=== PATIENT | female | born 1950 | race Two or more races ===

== ENCOUNTER → 2021-11-19 08:00 | Outpatient (CLI) | payer OTHER ==
[~2021-11-19] VITALS: Ht 157.5 cm; Wt 79.4 kg
[~2021-11-19 08:00] MED LIST: ARIMIDES PO; AVAPRO300 MG PO; LIPITOR40 MG PO; NORVASC5 MG PO
== END | disposition home or self-care (01) ==
LOC: LAB 08:00 → SURG 11-23 07:00 → EDSTATUS 11-23 08:45 → SURG 11-23 08:45
PROVIDERS: ATTEND Surgery
DX: R10.32 Left lower quadrant pain (principal); R19.4 Change in bowel habit; K57.20 Diverticulitis of large intestine with perforation and abscess without bleeding; Z20.828 Contact with and (suspected) exposure to other viral communicable diseases

== ENCOUNTER 2022-06-23 09:15 | Inpatient (IN) | payer OTHER ==
[~2022-06-23] VITALS: Ht 157.5 cm; Wt 78.9 kg
[2022-06-23] MEDS ORDERED: BONIVA150 MG PO (11:11)
[2022-06-28] MEDS ORDERED: PREGABALIN150 MG (11:30)
[2022-06-28] MEDS ORDERED: AMLODIPINE BESYL5 MG (11:31)
[2022-06-28] MEDS ORDERED: ANASTROZOLE1 MG (11:31)
[2022-06-28] MEDS ORDERED: PANTOPRAZOLE SO40 MG (11:31)
[2022-06-28] MEDS ORDERED: FAMOTIDINE40 MG (11:31)
[2022-06-28] MEDS ORDERED: IRBESARTAN-HCT1 EAC1 (11:31)
[2022-06-28] MEDS ORDERED: ROSUVASTATIN CA20 MG (11:31)
[2022-07-01] MEDS ORDERED: DICY20TA PO (11:13)
[2022-07-01] MEDS ORDERED: TRAM1TAB98 PO (11:14)
== END 2022-07-01 14:30 | disposition home or self-care (01) | DRG 331 ==
LOC: SURH 06-28 09:15 → O/R 06-28 10:07 → SURH 06-28 10:07
PROVIDERS: ADMIT Surgery; ATTEND Surgery
PROC: 0DBP4ZZ Excision of Rectum, Percutaneous Endoscopic Approach (ICD-10-PCS; 2022-06-28)
PROC: 0DJD8ZZ Inspection of Lower Intestinal Tract, Via Natural or Artificial Opening Endoscopic (ICD-10-PCS; 2022-06-28)
PROC: 0DTN4ZZ Resection of Sigmoid Colon, Percutaneous Endoscopic Approach (ICD-10-PCS; principal; 2022-06-28 11:00)
DX: K57.20 Diverticulitis of large intestine with perforation and abscess without bleeding (principal); D64.9 Anemia, unspecified; R19.4 Change in bowel habit; R10.32 Left lower quadrant pain; Z20.822 Contact with and (suspected) exposure to COVID-19